=== PATIENT | female | born 1980 | race Caucasian/White ===

== ENCOUNTER 2021-08-06 00:22 | Day surgery (SDC) | payer BC, SELFPAY ==
[2021-07-23 15:29] VITALS: BMI 27.3
[2021-08-06 08:49] VITALS: BP 109/62; PULSE 72; RESP 16; TEMP 37; O2SAT 100
[2021-08-06] MEDS: LACTATED RINGERS 1,000 ML 150 ML IV CONT (08:58)
--- NOTE | 2021-08-06 09:26 | WPDHPUPDATE1 ---
History and Physical Update Update Date/Time: 08/06/21 09:26 History and Physical has been reviewed, including an updated exam of the patient. There are NO changes in the patient's condition. Risks, benefits, and alternatives have been discussed and questions answered. Patient agrees to proceed with procedure.
[2021-08-06 09:39] VITALS: BP 106/57; PULSE 63; RESP 17; O2SAT 100
[2021-08-06 09:49] VITALS: BP 99/74; PULSE 64; RESP 17; O2SAT 100
[2021-08-06 09:59] VITALS: BP 102/58; PULSE 63; RESP 17; O2SAT 100
--- NOTE | 2021-08-06 10:08 | SUR.PHASEII ---
Pt complains of itching at iv site right arm. Dr. Guzman notified orders to observe pt for now.
[2021-08-06 10:09] VITALS: BP 101/55; PULSE 63; RESP 16; O2SAT 100
[2021-08-06 10:19] VITALS: BP 114/69; PULSE 60; RESP 19; O2SAT 100
--- NOTE | 2021-08-06 10:34 | SUR.PHASEII ---
Dr. Guzman in to see pt. Pt states itching is going away. No redness,swelling,rash observed.
== END 2021-08-06 10:35 | disposition home or self-care (01) ==
PROVIDERS: Visit Provider Internal Medicine Gastroenterology
PROC: 0DJ08ZZ Inspection of Upper Intestinal Tract, Via Natural or Artificial Opening Endoscopic (ICD-10-PCS; CPT 43235; principal; 2021-08-06 13:00)
DX: K29.50 Unspecified chronic gastritis without bleeding (principal)
CPT/HCPCS: 43239; 88305; J2704; J7120

== ENCOUNTER 2021-11-25 09:20 | Outpatient (CLI) | payer BC, SELFPAY ==
--- NOTE | ~2021-11-25 | NM_ITS ---
EXAM: NM gastric emptying study DATE: 11/25/2021 14:16 INDICATION: Epigastric pain TECHNIQUE: A gastric emptying study was performed using the methodology of Pierre SULTANA, et al. J Nucl Med 2007; 48:568-572. The patient was given a meal consisting of 2 scrambled eggs labeled with 1.01 mCi Tc-99m sulfur colloid, 2 slices of toast, two packages of jam, and approximately 120 mL of water. Simultaneous anterior and posterior 1-min images of the abdomen were obtained with the patient supin e at multiple time points over a total period of 4 hours. The geometric mean of anterior and posterio r views was determined, and the percentage retention was calculated for each time point. COMPARISON: None. FINDINGS: Gastric retention of the radiotracer-labeled meal was 67%, 49%, and 15% at the 1-hour, 2-hour, and 4- hour time points, respectively. With this technique, apparent rapid gastric emptying is suggested by <30% gastric retention at 1 hour. Delayed gastric emptying is defined by gastric retention of >90% at 1 hour, >60% retention at 2 hours, or >10% retention at 4 hours. IMPRESSION: 1. Delayed gastric emptying at 4 hours. Reviewed, dictated and finalized at location A.
== END 2021-11-25 09:21 | disposition home or self-care (01) ==
LOC: ANHIMG 09:25
PROVIDERS: Visit Provider Internal Medicine Gastroenterology
DX: R11.10 Vomiting, unspecified (principal); K30 Functional dyspepsia
CPT/HCPCS: 78264; A9541